=== PATIENT | male | born 1960 | race Caucasian/White ===

== ENCOUNTER 2021-04-29 13:29 | Inpatient (IN) ==
[2021-04-29 15:59] LABS: Basophils % 0.1 %; Eosinophils # 0.1 K/mcL (0.0-0.6); Eosinophils % 1.8 %; Hematocrit 39.6 % (37.5-50.1); Hemoglobin 12.6 g/dL (12.9-16.9); Immature Granulocytes % 0.3 % (0-4); Lymphocytes # 1.5 K/mcL (0.6-4.6); Lymphocytes % 20.2 %; Mean Corpuscular HGB Conc 31.8 g/dL (31.6-35.5); Mean Corpuscular Hemoglobin 27.4 pg (28.0-33.3); Mean Corpuscular Volume 86.1 fL (83.0-100.0); Mean Platelet Volume 8.6 fL (9.4-12.4); Monocytes # 0.4 K/mcL (0.0-1.3); Monocytes % 5.5 %; Neutrophils # 5.2 K/mcL (1.6-8.9); Platelet Count 244 K/mcL (140-400); Red Cell Distribution Width 13.8 % (11.5-14.5); Segmented Neutrophils % 72.1 %; White Blood Count 7.3 K/mcL (4.3-11.1)
[2021-04-29 16:06] LABS: INR 1.4; Prothrombin Time 15.6 Seconds (9.4-12.1)
[2021-04-29 16:09] LABS: Activated Partial Thrombo Time 28.4 Seconds (26.0-36.0)
[2021-04-29 16:13] LABS: Alanine Aminotransferase 24 Units/L (7-52); Albumin 3.9 g/dL (3.5-5.7); Albumin/Globulin Ratio 1.6 (1.1-2.2); Alkaline Phosphatase 80 Units/L (34-104); Aspartate Amino Transferase 24 Units/L (13-39); BUN/Creatinine Ratio 19 (6-26); Bilirubin,Total 0.6 mg/dL (0.3-1.0); Blood Urea Nitrogen 15 mg/dL (8-23); Calcium 8.6 mg/dL (8.6-10.3); Carbon Dioxide 25 mEq/L (23-29); Chloride 104 mEq/L (98-107); Creatine Kinase 112 Units/L (30-223); Globulin 2.4 g/dL (2.4-3.5); Glucose 283 mg/dL (70-105); Lipase 26 Units/L (11-82); Magnesium 1.9 mg/dL (1.6-2.6); Osmolality,Calculated 295 (280-300); Potassium 3.9 mEq/L (3.5-5.1); Sodium 137 mEq/L (136-145); Total Protein 6.3 g/dL (6.4-8.9); Troponin I < 0.03 ng/mL (< 0.04); eGFR For African Americans > 60 (> 60); eGFR For Non-African Americans > 60 (> 60)
[2021-04-29 16:27] LABS: Thyroid Stimulating Hormone 2.449 mcIU/mL (0.340-5.600)
[2021-04-29] MEDS ORDERED: Aspirin Enteric Coated 81 MG Tablet PO ONE (20:19)
[2021-04-29] MEDS ORDERED: Perflutren Lipid Microsphere 1.3 ML in 0.9 % Sodium Chloride 8.7 ML IVP PRN (20:21)
[2021-04-29] MEDS ORDERED: D5% in Water 1,000 ML IVC PRN (20:23)
[2021-04-29] MEDS ORDERED: Dextrose Gel 15 GM/37.5 ML TUBE PO PRN ×2 (20:23)
[2021-04-29] MEDS ORDERED: *HR* Dextrose 50 % in Water (Vial) 50 ML VIAL IVP PRN (20:23)
[2021-04-29] MEDS ORDERED: Acetaminophen 325 MG TABLET PO PRN (20:24)
[2021-04-29] MEDS ORDERED: Ondansetron 4 MG/2 ML VIAL IVP PRN (20:24)
[2021-04-29] MEDS ORDERED: Naloxone 0.4 MG/ML INJ IVP PRN (20:24)
[2021-04-29] MEDS ORDERED: Nitroglycerin 0.4 MG TAB.SUBL SL PRN (20:26)
[2021-04-29] MEDS ORDERED: Morphine Sulfate 2 MG/ML SYRINGE IVP PRN (20:26)
[2021-04-29] MEDS ORDERED: Furosemide 20 MG/2 ML VIAL IVP ONE (20:29)
[2021-04-29] MEDS ORDERED: *HR* Heparin 5,000 UNIT/ML VIAL IVP PRN ×2 (21:33)
[2021-04-30] MEDS: Gabapentin 300 MG CAPSULE PO SCH ×2 (00:10→10:09)
[2021-04-30] MEDS: Famotidine 20 MG/2 ML VIAL IVP SCH ×3 (00:11→23:05)
[2021-04-30] MEDS: Insulin LISPRO 300 UNITS/3 ML VIAL SUBQ SCH ×5 (00:59→19:56)
[2021-04-30] MEDS: Heparin 25,000UNIT/250ML 1/2NS 25,000 UNIT/250 ML IV.SOLN IVC SCH ×2 (02:07→09:43)
[2021-04-30 03:25] LABS: Hematocrit 40.8 % (37.5-50.1); Mean Corpuscular HGB Conc 31.9 g/dL (31.6-35.5); Mean Corpuscular Hemoglobin 27.3 pg (28.0-33.3); Mean Corpuscular Volume 85.7 fL (83.0-100.0); Mean Platelet Volume 8.5 fL (9.4-12.4); Platelet Count 290 K/mcL (140-400); Red Blood Count 4.76 M/mcL (4.19-5.50); Red Cell Distribution Width 13.8 % (11.5-14.5); White Blood Count 7.8 K/mcL (4.3-11.1)
[2021-04-30 03:32] LABS: INR 1.5; Prothrombin Time 16.7 Seconds (9.4-12.1)
[2021-04-30 03:35] LABS: Activated Partial Thrombo Time 35.9 Seconds (26.0-36.0)
[2021-04-30 03:46] LABS: BUN/Creatinine Ratio 19 (6-26); Blood Urea Nitrogen 11 mg/dL (8-23); Calcium 8.9 mg/dL (8.6-10.3); Carbon Dioxide 23 mEq/L (23-29); Chloride 106 mEq/L (98-107); Glucose 121 mg/dL (70-105); Osmolality,Calculated 289 (280-300); Potassium 3.8 mEq/L (3.5-5.1); Sodium 139 mEq/L (136-145); eGFR For African Americans > 60 (> 60); eGFR For Non-African Americans > 60 (> 60)
[2021-04-30 03:48] LABS: Chol/HDL Ratio 3.2 (0-4.9)
[2021-04-30 04:12] LABS: Folate > 22.3 ng/mL (3.0-16.0); Vitamin B12 888 pg/mL (250-1100)
[2021-04-30 04:43] LABS: Estimated Average Glucose 171 mg/dl; Hemoglobin A1C 7.6 %
[2021-04-30] MEDS ORDERED: Regadenoson 0.4 MG/5 ML SYRINGE IVP ONE (06:36)
[2021-04-30] MEDS ORDERED: lisinopriL 20 MG TABLET PO SCH (09:00)
[2021-04-30] MEDS ORDERED: Furosemide 40 MG/4 ML VIAL IVP ONE (11:10)
[2021-04-30] MEDS ORDERED: lisinopriL 20 MG TABLET PO ONE (11:30)
[2021-04-30] MEDS: Metoprolol XL (24 HR) Succ 25 MG TAB.ER.24H PO SCH (12:00)
[2021-04-30] MEDS: Gabapentin 400 MG CAPSULE PO SCH ×2 (16:02→19:55)
[2021-04-30] MEDS ORDERED: Warfarin perPT PO PRN (18:00)
[2021-04-30] MEDS ORDERED: *HR* Warfarin 5 MG TABLET PO ONE (18:00)
[2021-05-01] MEDS ORDERED: *HR* Labetalol 20 MG/4 ML SYRINGE IVP ONE (01:13)
[2021-05-01 03:40] LABS: Hematocrit 39.7 % (37.5-50.1); Hemoglobin 12.6 g/dL (12.9-16.9); Mean Corpuscular HGB Conc 31.7 g/dL (31.6-35.5); Mean Corpuscular Hemoglobin 27.4 pg (28.0-33.3); Mean Corpuscular Volume 86.3 fL (83.0-100.0); Mean Platelet Volume 8.3 fL (9.4-12.4); Platelet Count 272 K/mcL (140-400); Red Cell Distribution Width 14.1 % (11.5-14.5); White Blood Count 6.1 K/mcL (4.3-11.1)
[2021-05-01] MEDS ORDERED: *HR* Metoprolol 5 MG/5 ML VIAL IVP ONE (03:48)
[2021-05-01 03:51] LABS: INR 1.4; Prothrombin Time 15.9 Seconds (9.4-12.1)
[2021-05-01 03:58] LABS: BUN/Creatinine Ratio 18 (6-26); Blood Urea Nitrogen 12 mg/dL (8-23); Calcium 8.8 mg/dL (8.6-10.3); Carbon Dioxide 24 mEq/L (23-29); Chloride 105 mEq/L (98-107); Glucose 130 mg/dL (70-105); Osmolality,Calculated 290 (280-300); Phosphorous 3.5 mg/dL (2.7-4.5); Potassium 3.6 mEq/L (3.5-5.1); Sodium 139 mEq/L (136-145); eGFR For African Americans > 60 (> 60); eGFR For Non-African Americans > 60 (> 60)
[2021-05-01] MEDS: Insulin LISPRO 300 UNITS/3 ML VIAL SUBQ SCH ×4 (07:14→19:49)
[2021-05-01] MEDS: Metoprolol XL (24 HR) Succ 25 MG TAB.ER.24H PO SCH (08:21)
[2021-05-01] MEDS: Gabapentin 400 MG CAPSULE PO SCH ×3 (08:21→19:47)
[2021-05-01] MEDS: lisinopriL 20 MG TABLET PO SCH (08:21)
[2021-05-01] MEDS: Famotidine 20 MG/2 ML VIAL IVP SCH ×2 (08:21→19:48)
[2021-05-01] MEDS: Aspirin Enteric Coated 81 MG Tablet PO SCH (08:21)
[2021-05-01] MEDS: carvediloL 6.25 MG TABLET PO SCH ×2 (09:08→17:29)
[2021-05-01] MEDS: hydroCHLOROthiazide 25 MG TABLET PO SCH (09:19)
[2021-05-01] MEDS ORDERED: Furosemide 40 MG/4 ML VIAL IVP SCH (10:15)
[2021-05-01] MEDS: amLODIPine 5 MG TABLET PO SCH (12:48)
[2021-05-01] MEDS: *HR* Heparin 5,000 UNIT/ML VIAL SQ SCH (17:29)
[2021-05-01] MEDS ORDERED: *HR* Warfarin 5 MG TABLET PO ONE (18:00)
[2021-05-02 05:17] LABS: INR 1.4; Prothrombin Time 16.3 Seconds (9.4-12.1)
[2021-05-02] MEDS: *HR* Heparin 5,000 UNIT/ML VIAL SQ SCH (05:27)
[2021-05-02 05:28] LABS: BUN/Creatinine Ratio 20 (6-26); Blood Urea Nitrogen 13 mg/dL (8-23); Carbon Dioxide 28 mEq/L (23-29); Chloride 103 mEq/L (98-107); Glucose 141 mg/dL (70-105); Magnesium 1.9 mg/dL (1.6-2.6); Osmolality,Calculated 288 (280-300); Phosphorous 3.7 mg/dL (2.7-4.5); Potassium 3.9 mEq/L (3.5-5.1); Sodium 138 mEq/L (136-145); eGFR For African Americans > 60 (> 60); eGFR For Non-African Americans > 60 (> 60)
[2021-05-02 07:36] VITALS: PULSE 56
[2021-05-02] MEDS: Gabapentin 400 MG CAPSULE PO SCH (08:30)
[2021-05-02] MEDS: amLODIPine 5 MG TABLET PO SCH (08:31)
[2021-05-02] MEDS: carvediloL 6.25 MG TABLET PO SCH (08:31)
[2021-05-02] MEDS: Aspirin Enteric Coated 81 MG Tablet PO SCH (08:35)
[2021-05-02] MEDS: hydroCHLOROthiazide 25 MG TABLET PO SCH (08:36)
[2021-05-02] MEDS: lisinopriL 20 MG TABLET PO SCH (08:37)
[2021-05-02] MEDS: Famotidine 20 MG/2 ML VIAL IVP SCH (08:37)
[2021-05-02] MEDS ORDERED: amLODIPine 5 MG TABLET PO ONE (08:41)
[2021-05-02] MEDS: Insulin LISPRO 300 UNITS/3 ML VIAL SUBQ SCH (08:49)
[2021-05-02] MEDS ORDERED: Furosemide 40 MG TABLET PO SCH (09:00)
[2021-05-02 10:45] VITALS: TEMP 98.8; O2SAT 96
[2021-05-02 10:54] VITALS: BP 156/82
[2021-05-02] MEDS ORDERED: *HR* Warfarin 5 MG TABLET PO ONE (18:00)
[2021-05-03] MEDS ORDERED: amLODIPine 5 MG TABLET PO SCH (09:00)
== END 2021-05-02 12:44 | disposition home or self-care (01) | DRG 292 ==
LOC: 3BNU 13:29 → EMEROOARM 13:29 → SUATTDRO 20:35 → 3BNU 21:42
PROVIDERS: ADMIT Student in an Organized Health Care Education/Training Program; ATTEND Internal Medicine